=== PATIENT | female | born 1965 | race Two or more races ===

== ENCOUNTER 2016-11-27 23:00 | Emergency (ER) | payer SELFPAY ==
[2016-11-28 00:12] LABS: URINE SOURCE CLEAN CATCH
[2016-11-28 00:17] LABS: URINE APPEARANCE CLEAR; URINE BILIRUBIN NEG (NEG); URINE BLOOD TRACE (NEG); URINE COLOR YELLOW; URINE GLUCOSE NEG (NEG); URINE KETONE NEG (NEG); URINE LEUKOCYTE ESTERASE NEG (NEG); URINE NITRATE NEG (NEG); URINE PH 6.5 (5-8); URINE PROTEIN NEG (NEG); URINE SPECIFIC GRAVITY 1.014 (1.003-1.035); URINE UROBILINOGEN 0.2 MG/DL (NEG)
[2016-11-28 00:20] LABS: URINE BACTERIA AUWI NEG (NEGATIVE); URINE SQUAMOUS EPITHELIAL CELL NONE SEEN /[HPF]; UWBCS1 AUWI 0-2 (0-5)
[2016-11-28 00:24] LABS: CULTURE INDICATED? NO
[2016-12-01 22:07] LABS: CHLAMYDIA TRACH Not Detected (Not Detected); N GONOR Not Detected (Not Detected)
== END 2016-11-28 01:40 | disposition home or self-care (01) ==
LOC: CED 23:00 → CFTX 23:00
PROVIDERS: Nurse Practitioner
DX: R30.0 Dysuria (principal); R31.9 Hematuria, unspecified; M54.5 Low back pain; R11.0 Nausea; Z90.710 Acquired absence of both cervix and uterus
CPT/HCPCS: 81003; 87491; 87591; 87808; 87905; 99284